=== PATIENT | female | born 1975 | race Caucasian/White ===

== ENCOUNTER 2017-01-28 07:45 | Emergency (ER) | payer SELFPAY ==
[2017-01-28 07:52] VITALS: TEMP 97.5; BMI 36.6
--- NOTE | 2017-01-28 08:19 | PDOC ---
History of Present Illness - General History Source: Patient Exam Limitations: No Limitations - History of Present Illness Initial Comments: 01/28/17 08:46 The patient is a 41 year old female with no significant past medical history, who presents to the ER with fever, abdominal pain, nausea, vomiting, and diarrhea for three days. Patient states she initially developed a headache and dizziness on Wednesday. Patient reports she had accompanied nausea, several episodes of nonbilious/nonbloody vomiting, and intermittent generalized abdominal pain. She rates the abdominal pain at 8/10 at it worst and describes the pain as cramping. Patient reports having more than 20 episodes of diarrhea. Patient also states she has muscle weakness. Denies alcohol use, smoking Denies recent travel Denies eating anything out of the ordinary Denies PCP Denies dysuria Denies chest pain Allergies: NKDA <Karla Turk - Last Filed: 01/28/17 08:46> - General History Source: Patient Exam Limitations: No Limitations <Anita Carrillo - Last Filed: 01/28/17 11:50> - General Chief Complaint: Pain Stated Complaint: FEVER,WEAKNESS,VOMITING Time Seen by Provider: 01/28/17 08:01 Past History <Karla Turk - Last Filed: 01/28/17 08:46> - Past Medical History Other medical history: denies - Psycho/Social/Smoking Cessation Hx Suicidal Ideation: No Smoking History: Never smoked Information on smoking cessation initiated: No Hx Alcohol Use: No Drug/Substance Use Hx: No Substance Use Type: None <Anita Carrillo - Last Filed: 01/28/17 11:50> - Past Medical History Allergies/Adverse Reactions: Allergies Allergy/AdvReac Type Severity Reaction Status Date / Time No Known Allergies Allergy Verified 01/28/17 11:05 Home Medications: Ambulatory Orders Dicyclomine HCl [Bentyl -] 10 mg PO TID PRN #10 capsule 01/28/17 Ondansetron HCl [Zofran] 4 mg PO BID PRN #10 tablet 01/28/17 Review of Systems - Review of Systems Able to Perform ROS?: Yes Comments:: 01/28/17 08:48 GENERAL/CONSTITUTIONAL: (+) fever, weakness. No: chills, loss of appetite. HEAD, EYES, EARS, NOSE AND THROAT: No: change in vision, ear pain, discharge, sore throat, throat swelling. CARDIOVASCULAR: No: chest pain, lightheadedness, palpitations, syncope RESPIRATORY: No: cough, shortness of breath, wheezing, hemoptysis, stridor. GASTROINTESTINAL: (+) nausea, vomiting, abdominal cramping, diarrhea. No: rectal bleeding, constipation. GENITOURINARY: No: dysuria, hematuria, frequency, urgency, flank pain. MUSCULOSKELETAL: No: back pain, neck pain, joint pain, muscle swelling or pain SKIN AND BREASTS: No: lesions, pallor, rash or easy bruising. NEUROLOGIC: No: headache, vertigo, paresthesias, weakness ENDOCRINE: No: unexplained weight gain or loss HEMATOLOGIC/LYMPHATIC: No: anemia, easy bleeding, swelling nodes <Uts,Karla - Last Filed: 01/28/17 08:46> *Physical Exam - Vital Signs Last Vital Signs Temp Pulse Resp BP Pulse Ox 97.5 F L 85 18 127/81 100 01/28/17 07:50 01/28/17 07:50 01/28/17 07:50 01/28/17 07:50 01/28/17 07:50 - Physical Exam Comments: 01/28/17 08:49 GENERAL: The patient is in no acute distress. HEAD: Normal with no signs of trauma. EYES: PERRLA, EOMI, sclera anicteric, conjunctiva clear. ENT: Ears normal, nares patent, oropharynx clear without exudates. Moist mucous membranes. NECK: Normal range of motion, supple without lymphadenopathy, JVD, or masses. LUNGS: Breath sounds equal, clear to auscultation bilaterally. No wheezes, and no crackles. HEART:Regular rate and rhythm, normal S1 and S2 without murmur, rub or gallop. ABDOMEN: suprapubic and RLQ tenderness. Soft, normoactive bowel sounds. No guarding, no rebound. EXTREMITIES: Normal range of motion, no edema. No clubbing or cyanosis. No erythema, or tenderness. NEUROLOGICAL: Cranial nerves II through XII grossly intact. Normal speech. No focal neurological deficits. MUSCULOSKELETAL: Back non-tender to palpation, no CVA tenderness SKIN: Warm, Dry, normal turgor, no rashes or lesions noted. <Uts,Karla - Last Filed: 01/28/17 08:46> - Vital Signs Last Vital Signs Temp Pulse Resp BP Pulse Ox 97.5 F L 85 18 127/81 100 01/28/17 07:50 01/28/17 07:50 01/28/17 07:50 01/28/17 07:50 01/28/17 07:50 <Anita Carrillo - Last Filed: 01/28/17 11:50> ED Treatment Course - LABORATORY CBC & Chemistry Diagram: 01/28/17 08:52 01/28/17 08:52 <Anita Carrillo - Last Filed: 01/28/17 11:50> Medical Decision Making - Medical Decision Making 01/28/17 08:19 A portion of this note was documented by scribe services under my direction. I have reviewed the details of the note, within reason, and agree with the documentation with the following case summary and management plan written by me. Nursing documentation reviewed and incorporated into medical decision making This patient is a 41-year-old female with no significant past medical history presents emergency department with a complaint of headache, body aches, abdominal pain, nausea, vomiting, diarrhea. Patient symptoms have been present for the past 3 days. No recent travel. Patient states the first day of her symptoms she had a possibly 20 episodes of diarrhea. Nonbloody and nonmucoid. She's also had multiple episodes of vomiting. Patient is unable to tolerate by mouth. 01/28/17 09:33 Laboratory Tests 01/28/17 01/28/17 08:52 08:52 WBC 4.3 Hgb 15.1 Hct 45.1 Plt Count 158 Neutrophils % 64.6 Lymphocytes % 25.1 Urine Blood Negative Urine Nitrite Negative Ur Leukocyte Esterase Negative Urine RBC 2 Urine WBC 6 Ur Epithelial Cells Rare Urine Mucus Moderate 01/28/17 09:37 Upon re assessment, pt has pain still Will do CT Will give more IVF 01/28/17 11:47 The abdomen and pelvis negative. Patient states she feels better. Will discharged home with Blaire and Daisha. Return to the emergency department for any other concerns or complaints I discussed the physical exam findings, ancillary test results and final diagnoses with the patient. I answered all of the patient's questions. The patient was satisfied with the care received and felt comfortable with the discharge plan and treatment plan. The patient will call their primary care physician within 24 hours to arrange follow-up and will return to the Emergency Department with any new, persistent or worsening symptoms. <Anita Carrillo - Last Filed: 01/28/17 11:50> *DC/Admit/Observation/Transfer - Attestations Scribe Attestion: 01/28/17 08:49 Documentation prepared by Karla Turk, acting as lpn medical assistant for Anita Carrillo MD. <Karla Turk - Last Filed: 01/28/17 08:46> - Discharge Dispostion Admit: No <Anita Carrillo - Last Filed: 01/28/17 11:50> Diagnosis at time of Disposition: Gastroenteritis - Discharge Dispostion Disposition: HOME Condition at time of disposition: Stable - Patient Instructions Printed Discharge Instructions: DI for Viral Gastroenteritis -- Adult Additional Instructions: Return to the emergency department immediately with ANY new, persistent or worsening symptoms. Continue any medications as previously prescribed by your physician. You should follow up with your primary doctor as soon as possible regarding today's emergency department visit. . Please make sure your doctor reviews the results of your emergency evaluation. Thank you for coming to the Emergency Department today for your care. It was a pleasure to see you today. Please note that your evaluation is INCOMPLETE until you follow-up with your doctor. Print Language: GEORGIAN - Post Discharge Activity Work/School Note: Back to Work
[2017-01-28] MEDS ORDERED: ONDANSETRON 4 MG/2 ML VIAL IVPB ONE (08:20)
[2017-01-28] MEDS ORDERED: DICYCLOMINE HCL 10 MG CAPSULE PO ONE (08:20)
[2017-01-28] MEDS ORDERED: SODIUM CHLORIDE 1,000 ML IV STA (08:20)
[2017-01-28] MEDS ORDERED: ONDANSETRON 4 MG/2 ML VIAL ONE (08:55)
[2017-01-28] MEDS ORDERED: DICYCLOMINE HCL 10 MG CAPSULE ONE (08:55)
[2017-01-28 09:15] LABS: BASOPHIL 0.6 % (0-2.0); EOSINOPHIL 0.5 % (0-4.5); MCH 31.3 pg (25.7-33.7); MCHC 33.4 g/dl (32.0-36.0); MEAN CELL VOLUME 93.7 fl (80-96); MEAN PLT VOLUME 9.2 fl (7.5-11.1); NEUTROPHILS 64.6 % (42.8-82.8); PLATELET COUNT 158 K/MM3 (134-434); RDW 12.7 % (11.6-15.6); WHITE BLOOD COUNT 4.3 K/mm3 (4.0-10.0)
[2017-01-28 09:17] LABS: URINE APPEARANCE CLEAR; URINE BILIRUBIN NEGATIVE (NEGATIVE); URINE BLOOD NEGATIVE (NEGATIVE); URINE GLUCOSE (UA) NEGATIVE (NEGATIVE); URINE KETONE NEGATIVE (NEGATIVE); URINE LEUK ESTERASE NEGATIVE (NEGATIVE); URINE NITRITE NEGATIVE (NEGATIVE); URINE UROBILINOGEN NEGATIVE E.U./dl (0.2-1.0)
[2017-01-28 09:27] LABS: URINE COLOR DK YELLOW; URINE PROTEIN 2+ (NEGATIVE)
[2017-01-28 09:28] LABS: GRANULAR CASTS 1 /lpf; URINE MUCUS MODERATE; URINE RBC 2 /hpf (0-3); URINE WBC 6 /hpf (3-5)
[2017-01-28 09:31] LABS: ALBUMIN 4.1 g/dl (3.4-5.0); BILIRUBIN,TOTAL 0.6 mg/dL (0.2-1.0); CALCIUM 8.9 mg/dL (8.5-10.1); COCKROFT - GAULT 92.548; CREATININE 1.1 mg/dL (0.55-1.02); TOT PROT 7.9 g/dl (6.4-8.2)
[2017-01-28] MEDS ORDERED: POTASSIUM CHLORIDE TABS 20 MEQ TABLET.ER (FP) PO ONE ×2 (12:02→12:08)
[2017-01-28 12:08] VITALS: BP 126/70; PULSE 72
== END 2017-01-28 12:09 | disposition home or self-care (01) ==
LOC: JER 07:45
PROC: 3E033GC Introduction of Other Therapeutic Substance into Peripheral Vein, Percutaneous Approach (ICD-10-PCS; principal; 2017-01-28)
PROC: 3E0337Z Introduction of Electrolytic and Water Balance Substance into Peripheral Vein, Percutaneous Approach (ICD-10-PCS; 2017-01-28)
DX: K52.9 Noninfective gastroenteritis and colitis, unspecified (principal)
CPT/HCPCS: 36415; 74177-TC; 80053; 81003; 81015; 85025; 87086; 99283-25